=== PATIENT | male | born 1970 | race Caucasian/White ===

== ENCOUNTER 2023-10-13 14:47 | Emergency (ER) | payer MEDICAID ==
[~2023-10-13] VITALS: Ht 165.1 cm; Wt 96.6 kg
[2023-10-13 15:31] VITALS: BP_SYST 138; PULSE 90; RESP 18; TEMP 97.9; O2SAT 97
[2023-10-13 15:58] LABS: BILIRUBIN,URINE NEGATIVE (NEGATIVE); BLOOD, URINE 1+ (NEGATIVE); CLARITY/URINE CLEAR (CLEAR); COLOR,URINE YELLOW (YELLOW); GLUCOSE,URINE NEGATIVE (NEGATIVE); KETONES,URINE NEGATIVE (NEGATIVE); LEUKOCYTE ESTERASE ,URINE NEGATIVE (NEGATIVE); NITRITE, URINE NEGATIVE (NEGATIVE); PH,URINE 5.5 (5.0-8.0); PROTEIN URINE NEGATIVE (NEGATIVE); UROBILINOGEN,URINE 0.2 (0.2-1.0)
[2023-10-13 16:06] LABS: BACTERIA,URINE FEW /HPF (None Seen); MUCUS,URINE None Seen /LPF (None Seen); RBC,URINE 0-3 /HPF (0-3); WBC,URINE NONE SEEN /HPF (0-3)
[2023-10-13] MEDS: IBUPROFEN 600 MG TABLET PO ONE (16:09)
[2023-10-13 16:10] LABS: BASOPHILS # (AUTO) 0.1 K/uL (0.0-0.2); BASOPHILS % (AUTO) 1.1 % (0.0-2.0); EOSINOPHILS % (AUTO) 0.3 % (0.0-4.0); HEMATOCRIT 46.6 % (36-54); HEMOGLOBIN 16.4 g/dL (14.0-18.0); LYMPHOCYTES # (AUTO) 1.2 K/uL (1.0-5.5); LYMPHOCYTES % (AUTO) 21.4 % (20.5-51.5); MEAN CORPUSCULAR HEMOGLOBIN 31 pg (27-31); MEAN CORPUSCULAR HGB CONC 35 % (32-36); MEAN CORPUSCULAR VOLUME 87 fL (79.0-98.0); MONOCYTES # (AUTO) 0.8 K/uL (0.0-1.0); MONOCYTES % (AUTO) 13.3 % (1.7-9.3); NEUTROPHILS # (AUTO) 3.7 K/uL (1.8-7.7); NEUTROPHILS % (AUTO) 63.9 % (40.0-70.0); PLATELET COUNT (AUTO) 285 K/uL (130-430); RED BLOOD CELL COUNT(AUTO) 5.34 MIL/uL (4.2-6.2); WHITE BLOOD COUNT (AUTO) 5.7 K/uL (4.8-10.8)
[2023-10-13 16:12] LABS: CALCIUM 9.3 mg/dL (8.4-11.0); CREATININE 0.94 mg/dL (0.55-1.30); POTASSIUM 4.3 mmol/L (3.5-5.1)
[2023-10-13] MEDS ORDERED: DICL20GE TP (17:30)
[2023-10-13] MEDS ORDERED: DICL75TA5 PO (17:30)
[2023-10-13] MEDS: KETOROLAC TROMETHAMINE 60 MG/2 ML VIAL IM ONE (17:53)
[2023-10-13 19:10] VITALS: BP_SYST 138; PULSE 90; RESP 18; TEMP 97.9; O2SAT 97
== END 2023-10-13 18:06 | disposition home or self-care (01) ==
LOC: SED 14:47
DX: M54.32 Sciatica, left side (principal)
CPT/HCPCS: 99285; 72131; 80048; 81001; 85025; 36415; 96372; 81000; 81015; J1885